=== PATIENT | female | born 1965 | race Caucasian/White ===

== ENCOUNTER 2017-03-13 18:02 | Emergency (ER) | payer OTHER ==
--- NOTE | 2017-03-13 19:19 | DIAGNOSTIC IMAGING REPORT ---
PROCEDURE: CT ABDOMEN/PELVIS W/O CONTRAST INDICATION: L FLANK PAIN TECHNIQUE: Noncontrast axial images were obtained of the entire abdomen and pelvis with sagittal and coronal reformations. COMPARISON: None. FINDINGS: ABDOMEN: There are no urinary calculi or hydronephrosis. Duplicated renal collecting systems bilaterally. Lung base are clear. Heart size is normal. Mild hepatic steatosis. Cholecystectomy. Pancreas, spleen and adrenal glands are normal. Mild atherosclerosis of the aorta. Nonspecific bowel gas pattern. PELVIS: Appendix not visualized but no evidence of acute appendicitis. Hysterectomy. Normal bladder. No pelvic mass, inflammatory changes or free fluid. Mild levoscoliosis and degenerative changes of the spine. IMPRESSION: 1. No evidence of urinary calculi 2. Hepatic steatosis 3. Cholecystectomy and hysterectomy 4. Results discussed with Dr. Henderson All CT scans at this facility use dose modulation, iterative reconstruction, and/or weight-based dosing when appropriate to reduce radiation dose to as low as reasonably achievable.
--- NOTE | 2017-03-13 20:06 | ED CLINICAL REPORT ---
Clinical Report - Physicians/Mid Levels [facility] [address] [place] [address] 03/13/2017 18:11 Patient: CANDELARIA VALENZUELA Time Seen: 1830. Arrived- By private vehicle. Historian- patient. HISTORY OF PRESENT ILLNESS Chief Complaint: ABDOMINAL PAIN. This started past month and is still present and worsening. It was abrupt in onset and has been intermittent but is not gone now. It is described as sharp and it is described as located in the left flank and radiating (left groin). At its maximum, severity described as severe. When seen in the E.D., severity described as severe. The patient has had nausea. No loss of appetite, vomiting or diarrhea. No recent travel. Similar symptoms previously: None. Recent medical care: The patient was seen recently in a clinic (told to go to the ED.). REVIEW OF SYSTEMS No constipation, black stools, hematemesis, bloody stools or fever. All systems otherwise negative, except as recorded above. PAST HISTORY See nurses notes. Medications: Omeprazole Oral. Flexall External. MetFORMIN HCl Oral. PROzac Oral. Prozac. Allergies: Amoxicillin. Hydrocodone. Iodine. SOCIAL HISTORY Former smoker. No alcohol use or drug use. No recent travel. Is a local resident. FAMILY HISTORY No family history of gall bladder problems. ADDITIONAL NOTES The nursing notes have been reviewed. PHYSICAL EXAM Vital Signs: 03/13/2017 18:17 BP: 145/79. HR: 105. RR: 18. O2 saturation: 99%. Temp: 99.1 F. Blood pressure normal. Oxygen saturation normal. Appearance: Alert. Oriented X3. No acute distress. (polite, cooperative, pleasant). Eyes: Pupils equal, round and reactive to light. Eyes normal inspection. CVS: Normal heart rate and rhythm. Heart sounds normal. Pulses normal. Respiratory: No respiratory distress. Breath sounds normal. Chest nontender. No rales, rhonchi or wheezes. Abdomen: Soft and nontender. Bowel sounds normal. Back: Moderate CVA tenderness on the left. (no midline tenderness. No crepitus. No abnormalities overlying skin.). Skin: Skin warm and dry. Normal skin color. No rash. Normal skin turgor. Extremities: Extremities exhibit normal ROM. No lower extremity edema. Neuro: Oriented X 3. No motor deficit. No sensory deficit. LABS, X-RAYS, AND EKG Laboratory Tests: UA-Culture if indicated: (ANABEL: 03/13/2017 18:10) ( [facility] 03/13/2017 19:33) Final results Test Result Flag Units (Reference) URINE COLOR YELLOW URINE APPEARANCE CLEAR URINE GLUCOSE NEGATIVE (NEGATIVE) URINE BILIRUBIN NEGATIVE (NEGATIVE) URINE KETONE NEGATIVE (NEGATIVE) URINE SPECIFIC GRAVITY 1.025 (1.010-1.030) URINE PH 6.0 (5.0-8.0) URINE PROTEIN NEGATIVE (NEGATIVE) URINE UROBILINOGEN 0.2 EU/dL (0.2-1.0) URINE NITRITE POSITIVE (NEGATIVE) URINE BLOOD NEGATIVE (NEGATIVE) URINE LEUK ESTERASE TRACE (NEGATIVE) URINE RBC NONE SEEN rbc/hpf (0-1) URINE WBC 3-5 wbc/hpf (0-1) URINE EPITHELIAL CELLS 5-10 EPI/hpf (0-5) URINE BACTERIA MANY (4+) (NONE SEEN) URINE COMMENT CULTURE INDICATED URINE CULTURES ARE SET-UP BASED ON THE FOLLOWING CRITERIA:POSITIVE NITRITEPOSITIVE LEUKOCYTE ESTERASEGREATER THAN 10 WHITE BLOOD CELLSMODERATE (2+) OR GREATER BACTERIA CBC w Diff: (ANABEL: 03/13/2017 18:50) ( [facility] 03/13/2017 19:06) Final results Test Result Flag Units (Reference) WHITE BLOOD COUNT 9.4 K/uL (4.5-11.5) RED BLOOD COUNT 4.88 M/uL (4.00-5.20) HEMOGLOBIN 14.4 gm/dL (12.0-16.0) HEMATOCRIT 42.8 % (36.0-46.0) MEAN CELL VOLUME 88 fL (80-100) MEAN CORPUSCULAR HGB 29 pg (26-34) MEAN CORPUSCULAR HGB CONC 34 g/dL (31-37) RED CELL DISTRIBUTION WIDTH 12.6 % (11.6-14.8) PLATELET COUNT 300 K/uL (150-400) NEUTROPHIL % 58.5 % (50-75) LYMPH % 33.8 % (25-40) MONO % 3.5 % (3-14) EOSINOPHIL % 3.7 % (0-4) BASOPHIL % 0.5 % (0-2) CMP: (ANABEL: 03/13/2017 18:50) ( [facility] 03/13/[place] 19:34) Final results Test Result Flag Units (Reference) GLUCOSE 104 mg/dL (70-110) BUN 24 H mg/dL (7-18) CREATININE 0.8 mg/dL (0.6-1.3) Estimated GFR >60 mL/min Estimated GFR- >60 mL/min Note: Persistent reduction over 3 months in eGFR<60 mL/min/1.73 m2 defines CKD. Patients with eGFR values>=60 mL/min/1.73 m2 may also have CKD if evidence ofpersistent proteinuria. Additional information may be foundat www.[email or web address].org. SODIUM 138 mmol/L (136-145) POTASSIUM 3.6 mmol/L (3.5-5.1) CHLORIDE 102 mmol/L (98-107) CARBON DIOXIDE 26 mmol/L (21-32) CALCIUM 8.5 mg/dL (8.5-10.1) TOTAL PROTEIN 7.0 g/dL (6.4-8.2) ALBUMIN 3.6 g/dL (3.3-5.0) BILIRUBIN, TOTAL 0.4 mg/dL (0.0-1.0) ALKALINE PHOSPHATASE 39 L U/L (46-116) AST (SGOT) 20 U/L (15-37) ALT (SGPT) 33 U/L (12-78) LIPASE 117 U/L (73-393) Culture, Urine: (ANABEL: 03/13/2017 18:10) ( [facility] 03/15/2017 11:30) Final results Test Result Flag Units (Reference) CULTURE, URINE DATE: 03/15/17 PRELIM REPORT: FINAL REPORT -- ESCCOL QUANTITATIVE URINE GROWTH: GREATER THAN 100,000 CFU/mL AMOXICILLIN/CLAVULANATE AMPICILLIN R AMPICILLIN/SULBACTAM R CEFAZOLIN S CEFTRIAXONE S CEFEPIME S CEFUROXIME CIPROFLOXACIN R ERTAPENEM S GENTAMICIN S IMIPENEM S LEVOFLOXACIN R MEROPENEM S NITROFURANTOIN S TETRACYCLINE PIP/TAZO S TRIMETHOPRIM/SULFAMETHOXAZOLE R . PROGRESS AND PROCEDURES Course of Care: the patient is a 52-year-old female presenting for a vaginal left-sided flank pain. Patient was seen at urgent care clinic and referred to our emergency department. At this time differential diagnosis includes renal colic versus pyelonephritis. Patient will be evaluated with a CT scan of the abdomen and pelvis without contrast as well as urinalysis and laboratory studies. Patient is agreeable to the workup and plan. Pain medication and nausea medication as been offered. The patient's workup was remarkable for the findings above. Urinalysis is significantly positive. 4+ bacteria noted on patient's urinalysis. The patient's other laboratory studies and CT scan are noted for the findings above. Patient has a nonsurgical abdomen. CT scan does not show any signs of surgical emergency at this time. Because of the patient's workup here in the emergency department, patient be treated conservatively with antibiotics and follow-up. Do not fill patient is admitted to the hospital require further emergency department workup/evaluation. On repeat examination, patient is significantly more comfortable. Patient states that she feels that her pain is well-controlled and can return home. Had a discussion with the patient in regards to workup here in emergency department including her diagnosis, home care, follow-up, and return precautions. All questions have been answered. The patient expressed understanding of these instructions and was agreeable to them. Disposition: Discharged. Condition: good. CLINICAL IMPRESSION 03/13/2017 19:35 BP: 136/75. HR: 96. RR: 15. O2 saturation: 96%. Temp: 98.6 F. Pain level now: 8/10. Blood pressure normal. Oxygen saturation normal. Acute pyelonephritis INSTRUCTIONS Warnings: SEDATIVE MEDICATION: You were given sedative medication during your visit. Do not drive or operate dangerous machinery. CONTROLLED SUBSTANCE WARNINGS. GENERAL WARNINGS: Return or contact your physician immediately if your condition worsens or changes unexpectedly, if not improving as expected, or if other problems arise. SPECIFICALLY, return if you develop pain, fever, vomiting, the inability to keep fluids down, blood in vomitus, blood in diarrhea, fainting or lightheadedness. Your Current Medications: CONTINUE TAKING THE FOLLOWING MEDICATIONS: Flexall External. MetFORMIN HCl Oral. Omeprazole Oral. Prozac*. PROzac Oral. Prescription Medications: Cephalexin 500 mg: take 1 capsule orally every 8 hours for 10 days. No refill. (disp 30 caps) Motrin 600 mg tablets: take 1 tablet orally every 6 hours as needed for pain, stiffness, swelling or fever. Dispense thirty (30). No refill. Substitution is permissible. Percocet 5 mg/325 mg: take 1 tablet orally every 6 hours as needed for pain. Dispense ten (10). No refill. Substitution is permissible. Follow-up: Return to the emergency department as needed. Follow up with your doctor in three days. Reason for referral: recheck today's concerns. Summary of care provided to patient via paper. Screening today revealed the patient's blood pressure to be in the normal range. The patient should follow up with a primary care provider for blood pressure management. Understanding of the discharge instructions verbalized by patient. (Electronically signed by Karlos Henderson Dr. 03/17/2017 2:09)
--- NOTE | 2017-03-13 20:06 | ED ORDER SUMMARY ---
..... Patient: CANDELARIA VALENZUELA OrderSheet [facility] VisitID: [id number] [place] [address] 52y, F Registration Date/Time: 03/13/2017 ORDER SHEET Weight: 98.4 kg (stated) Allergies: Iodine, Hydrocodone, Amoxicillin GENERAL ORDERS: CBC w Diff Urgent (18:41 03/13/2017 Newton Pineda) (Ack 18:45 PWeiler ER Tech1) (19:02 EHassan R.N.) CMP Urgent (18:41 03/13/2017 Newton Pineda) (Ack 18:45 PWeiler ER Tech1) (19:02 EHassan R.N.) UA-Culture if indicated Urgent (18:41 03/13/2017 Newton Pineda) (Ack 18:45 PWeiler ER Tech1) (19:02 EHassan R.N.) Lipase Urgent (18:41 03/13/2017 Newton Pineda) (Ack 18:45 PWeiler ER Tech1) (19:02 EHassan R.N.) Pulse oximeter (18:41 03/13/2017 Newton Pineda) (19:02 EHassan R.N.) CT Abd/Pel wo Cont Urgent (18:43 03/13/2017 Newton Pineda) (Ack 18:45 PWeiler ER Tech1) (19:09 LWhalen R.N.) MEDICATION ORDERS: Phenergan IV 25 mg (HIGH ALERT MEDICATION, NOW) (19:30 03/13/2017 Newton Pineda) (19:33 EHassapritesh R.N.) IV FLUIDS: IV NS : initial bolus 1000 mL (1000 mL/hr), then none - for X1 (NOW) (18:41 03/13/2017 Newton Pineda) (Ack 19:04 JBallyn R.N.) (19:09 LWhalen R.N.) Morphine IV 4 mg (HIGH ALERT MEDICATION, NOW) (18:41 03/13/2017 Newton Pineda) (Ack 19:04 Florian R.N.) (19:09 LWhalen R.N.) Zofran IV 4 mg (NOW) (18:41 03/13/2017 Newton Pineda) (Ack 19:04 Florian David) (19:09 Yakov David) Ceftriaxone IV 1 gm/50mL (NOW) (19:23 03/13/2017 Newton Pineda) (19:32 Rei David) had keflex without reaction Toradol IV 30 mg (NOW) (19:23 03/13/2017 Newton Pineda) (19:28 Rei David) had keflex without reaction ORDER SHEET NOTES: [Electronically signed by Diego Parker R.N. (22:48 03/13/2017)] [Electronically signed by Karlos Henderson Dr. (02:09 03/17/2017)] [Electronically locked/signed by Diego Parker R.N. (22:48 03/13/2017)]
--- NOTE | 2017-03-13 20:06 | ED ORDER SUMMARY ---
..... Patient: CANDELARIA VALENZUELA OrderSheet [facility] VisitID: [id number] [place] [address] 52y, F Registration Date/Time: 03/13/2017 ORDER SHEET Weight: 98.4 kg (stated) Allergies: Iodine, Hydrocodone, Amoxicillin GENERAL ORDERS: CBC w Diff Urgent (18:41 03/13/2017 Newton Pineda) (Ack 18:45 PWeiler ER Tech1) (19:02 EHassan R.N.) CMP Urgent (18:41 03/13/2017 Newton Pineda) (Ack 18:45 PWeiler ER Tech1) (19:02 EHassan R.N.) UA-Culture if indicated Urgent (18:41 03/13/2017 Newton Pineda) (Ack 18:45 PWeiler ER Tech1) (19:02 EHassan R.N.) Lipase Urgent (18:41 03/13/2017 Newton Pineda) (Ack 18:45 PWeiler ER Tech1) (19:02 EHassan R.N.) Pulse oximeter (18:41 03/13/2017 Newton Pineda) (19:02 EHassan R.N.) CT Abd/Pel wo Cont Urgent (18:43 03/13/2017 eNwton Pineda) (Ack 18:45 PWeiler ER Tech1) (19:09 LWhalen R.N.) MEDICATION ORDERS: Phenergan IV 25 mg (HIGH ALERT MEDICATION, NOW) (19:30 03/13/2017 Newton Pineda) (19:33 EHassapritesh R.N.) IV FLUIDS: IV NS : initial bolus 1000 mL (1000 mL/hr), then none - for X1 (NOW) (18:41 03/13/2017 Newton Pineda) (Ack 19:04 JBallyn R.N.) (19:09 LWhalen R.N.) Morphine IV 4 mg (HIGH ALERT MEDICATION, NOW) (18:41 03/13/2017 Newton Pineda) (Ack 19:04 Florian R.N.) (19:09 LWhalen R.N.) Zofran IV 4 mg (NOW) (18:41 03/13/2017 Newton Pineda) (Ack 19:04 Florian David) (19:09 Yakov David) Ceftriaxone IV 1 gm/50mL (NOW) (19:23 03/13/2017 Newton Pineda) (19:32 Rei David) had keflex without reaction Toradol IV 30 mg (NOW) (19:23 03/13/2017 Newton Pineda) (19:28 Rei David) had keflex without reaction ORDER SHEET NOTES: [Electronically signed by Diego aPrker R.N. (22:48 03/13/2017)] [Electronically signed by Karlos Henderson Dr. (02:09 03/17/2017)] [Electronically locked/signed by Diego Parker R.N. (22:48 03/13/2017)]
--- NOTE | 2017-03-13 20:06 | ED NURSING NOTES ---
Clinical Report - Nurses [facility] [address] [place] [address] 03/13/2017 18:11 [id number] Triage time 18:17 Mar 13 2017. Acuity: LEVEL 3. Chief Complaint: ABDOMINAL PAIN. SARAH COMA SCORE: Sarah Coma Scale: 15- eyes open spontaneously (4); best verbal response- oriented x 4 (5); best motor response- obeys commands (6). --18:27 Mariposa Gallagher R.N. 18:17 03/13/17. BP: 145/79. HR: 105. RR: 18. O2 saturation: 99%. Temp: 99.1 F. Pain level now 7/10. --18:27 Mariposa Gallagher R.N. Weight: 98.4 kg stated. Height/Length: 68 inches Per Patient. BMI: 33. --18:26 Mariposa Gallagher R.N. Medications Prozac. --18:19 Mariposa Gallagher R.N. MetFORMIN HCl Oral. PROzac Oral. --18:19 Mariposa Gallagher R.N. Flexall External. --18:19 Mariposa Gallagher R.N. Omeprazole Oral. --18:19 Mariposa Gallagher R.N. Allergies Iodine. --18:20 Mariposa Gallagher R.N. Hydrocodone. --18:20 Mariposa Gallagher R.N. Amoxicillin. --18:20 Mariposa Gallagher R.N. History Arrived by private vehicle. Historian: patient. ( Left sided back and abdominal pain that radiates into groin in that area. + more frequent and urgent urine.). She has had nausea. No vomiting, diarrhea, constipation, abdominal pain or fever. No subjective low grade fever. Not this morning. PAST MEDICAL HX: Diabetes mellitus. Gastroesophageal reflux disease. Gallstones. No history of peptic ulcer disease. Immunizations: up-to-date. Has not had a hysterectomy. SOCIAL HX: Former smoker, end date 1998. No alcohol use or drug use. No recent travel. No known contact with a sick individual. SELF HARM ASSESSMENT: A self harm assessment was performed. The patient answered "no" to the question "Do you have thoughts of harming or killing yourself?". FALL RISK ASSESSMENT: Fall risk assessment completed. No fall risk identified. NUTRITIONAL RISK ASSESSMENT: The nutritional risk assessment revealed no deficiencies. FUNCTIONAL ASSESSMENT: Functional assessment: no impairments noted. LEARNING NEEDS ASSESSMENT: The learning needs assessment revealed no barriers. SKIN INTEGRITY ASSESSMENT: Skin integrity risk assessment completed. No skin integrity risk identified. --18:27 Mariposa Gallagher R.N. PROBLEMS: Diabetes Mellitus. Elevated Cholesterol. Neck Injury. Gallstone(s). Bladder problems . Gerd. --18:23 Mariposa Gallagher R.N. ADDITIONAL SURGERIES: Appendectomy. Bladder Suspension. Cholecystectomy. Hysterectomy. --18:23 Mariposa Gallagher R.N. Interventions ID band on patient. --18:27 Mariposa Galalgher R.N. PHYSICAL ASSESSMENT GENERAL / NEURO / PSYCH: Acute distress is noted. --18:28 Mariposa Gallagher R.N. GENERAL / NEURO / PSYCH: Alert. Oriented X 4. Appears in no acute distress. Appears anxious. HEENT: Mucous membranes are pink. RESPIRATORY: Respirations not labored. Breath sounds within normal limits. CVS: Normal sinus rhythm noted. Capillary refill less than 2 seconds. GI / : The patient has had nausea. Abdomen soft. Abdominal tenderness. Bowel sounds within normal limits. Normal genitalia. ( Normal BM yesterday). SKIN: Skin is warm and dry. --18:30 Diego Parker R.N. NURSING PROGRESS NOTES The initial plan of care for this patient includes an assessment with efforts to address patient positioning, appropriate ambient lighting and comfortable environmental temperature; impairment of the gastrointestinal and musculoskeletal system. Pulse oximeter and NIBP monitor placed on patient. Patient gowned. Head of bed elevated 75 degrees. Reassurance given. Call light placed in reach. Side rails up x 1. Bed placed in lowest position. Brakes of bed on. --18:30 Diego Parker R.N. 18:55 03/13/2017 Site #1 started via IV in the left wrist with an 22g angiocath, with aseptic technique and good blood return; two attempts. Blood drawn: rainbow set. Labeled in the presence of the patient and sent to the lab. Saline lock flushed with 10 mL saline. --19:05 Srinath Gomez R.N. 19:03/13/2017 Started bag #1 1000 mL IV Fluids IV NS (Saline); at 1000 mL/hr over 1 hour(s) via site #1 via IV pump. Allergies verified and confirmed 5 rights. IV patency established. IV site checked: no pain, redness, or swelling. IV flushed thoroughly pre- and post-medication administration. --19: Diego Parker R.N. 19:03/13/2017 Zofran (Ondansetron HCl) IVP 4 mg given over 2 minute(s) via site #1. Allergies verified and confirmed 5 rights. IV patency established. IV site checked: no pain, redness, or swelling. IV flushed thoroughly pre- and post-medication administration. --19: Diego Parker R.N. 19:03/13/17. Patient transported to [place] by stretcher with tech. ([id number]). --19: Srinath Gomez R.N. 19:03/13/2017 Morphine IVP 4 mg given over 2 minute(s) via site #1. Allergies verified, confirmed 5 rights and sedative warning given to the patient. IV patency established. IV site checked: no pain, redness, or swelling. IV flushed thoroughly pre- and post-medication administration. --19: Diego Parker R.N. 19:03/13/2017 Toradol IVP 30 mg given over 30 second(s) via site #1. Allergies verified and confirmed 5 rights. IV patency established. IV site checked: no pain, redness, or swelling. IV flushed thoroughly pre- and post-medication administration. IVP given by RN. --19: Mariposa Gallagher R.N. :03/13/2017 Morphine IVP Response: no adverse reaction pain is worsening. Symptoms have gotten worse. The patient feels worse. --19: Mariposa Gallagher R.N. 19:03/13/2017 Zofran IVP Response: no adverse reaction pain is worsening. Symptoms are the same. The patient feels the same. --19:28 Mariposa Gallagher R.N. 19:32 03/13/2017 Started 1 gm of Ceftriaxone IVPB in bag #1 50 mL; at 150 mL/hr over 30 minute(s) via site #1 via IV pump. Allergies verified and confirmed 5 rights. IV patency established. IV site checked: no pain, redness, or swelling. IV flushed thoroughly pre- and post-medication administration. --19:32 Mariposa Gallagher R.N. 19:33 03/13/2017 PHENERGAN (Promethazine HCl) IVP 25 mg given over 30 second(s) via site #1. Allergies verified and confirmed 5 rights. IV patency established. IV site checked: no pain, redness, or swelling. IV flushed thoroughly pre- and post-medication administration. IVP given by RN. --19:33 Mariposa Gallagher R.N. Pulse oximeter and NIBP monitor placed on patient; monitor alarms on. Reassurance given. The patient is calm. Overall patient status is the same- she states feels the same. ( Toradol given as ordered and antibiotics infusing. Will monitor). GI / : The patient reports nausea. The patient reports abdominal pain. Denies diarrhea or vomiting. Two patient identifiers checked. Call light placed in reach. --19:37 Mariposa Gallagher R.N. 19:35 03/13/17. BP: 136/75 (regular adult cuff) taken on the left arm, via an automated monitor, while lying. HR: 96. RR: 15. O2 saturation: 96% on room air. Temp: 98.6 F (oral). Pain level now: 05/17. --19:37 Mariposa Gallagher R.N. 20:30 03/13/2017 IV Fluids IV NS Discontinued: bag #1 infused upon discharge. Total amount infused: 600 mL. IV patency established. IV site checked: no pain, redness, or swelling. IV flushed thoroughly. --22:48 Diego Parker R.N. DISPOSITION / DISCHARGE 20:03/13/2017 Site #1 removed upon discharge. Catheter intact. Pressure dressing applied. --20:09 Diego Parker R.N. Condition at departure: improved. No learning barriers present. Discharge instructions provided and reviewed with the patient. Reviewed warnings. Reviewed medication(s). Treatments reviewed. Reviewed referrals. Patient verbalized understanding. Written instructions provided in Monegasque. The patient was discharged home and accompanied by spouse. She left the Emergency Department ambulatory and via private vehicle. Spouse driving. --20:11 Diego Parker R.N. 19:35 03/13/17. BP: 136/75 (regular adult cuff) taken on the left arm, via an automated monitor, while lying. HR: 96. RR: 15. O2 saturation: 96% on room air. Temp: 98.6 F (oral). Pain level now: 05/17. --20:11 Diego Parker R.N. Locked/Released at 03/13/2017 22:48 by Diego Parker R.N.
--- NOTE | 2017-03-17 02:09 | ED DISCHARGE INSTRUCTIONS ---
Patient: CANDELARIA VALENZUELA General Instructions [facility] VisitID: [id number] [place] [address] 52y, F Registration Date/Time: 03/13/2017 03/13/2017 19:35 BP: 136/75. HR: 96. RR: 15. O2 saturation: 96%. Temp: 98.6 F. Pain level now: 8/10. Blood pressure normal. Oxygen saturation normal. Acute pyelonephritis INSTRUCTIONS Warnings: SEDATIVE MEDICATION: You were given sedative medication during your visit. Do not drive or operate dangerous machinery. CONTROLLED SUBSTANCE WARNINGS. GENERAL WARNINGS: Return or contact your physician immediately if your condition worsens or changes unexpectedly, if not improving as expected, or if other problems arise. SPECIFICALLY, return if you develop pain, fever, vomiting, the inability to keep fluids down, blood in vomitus, blood in diarrhea, fainting or lightheadedness. Your Current Medications: CONTINUE TAKING THE FOLLOWING MEDICATIONS: Flexall External. MetFORMIN HCl Oral. Omeprazole Oral. Prozac*. PROzac Oral. Prescription Medications: Cephalexin 500 mg: take 1 capsule orally every 8 hours for 10 days. No refill. (disp 30 caps) Motrin 600 mg tablets: take 1 tablet orally every 6 hours as needed for pain, stiffness, swelling or fever. Dispense thirty (30). No refill. Substitution is permissible. Percocet 5 mg/325 mg: take 1 tablet orally every 6 hours as needed for pain. Dispense ten (10). No refill. Substitution is permissible. Follow-up: Return to the emergency department as needed. Follow up with your doctor in three days. Reason for referral: recheck today's concerns. Summary of care provided to patient via paper. Screening today revealed the patient's blood pressure to be in the normal range. The patient should follow up with a primary care provider for blood pressure management. Understanding of the discharge instructions verbalized by patient. ADDITIONAL INFORMATION Kidney Infection [Adult, Female] An infection of the kidney is also called "pyelonephritis". It usually starts as a bladder infection ("cystitis") which spreads to the kidneys. Pyelonephritis is more serious than a bladder infection. It can cause severe illness if not treated properly. The usual symptoms include an aching pain in the back, side or lower abdomen. Other symptoms may include fever, chills, nausea, vomiting, an urge to urinate and a burning sensation when passing urine. Home Care: Stay home from work or school. Rest in bed until your fever breaks and you are feeling better. Drink lots of fluid (at least 6-8 glasses a day, unless you must restrict fluids for other medical reasons). This will force the medicine into your urinary system and flush the bacteria out of your body. Avoid sexual intercourse until you have finished all of your medicine and your symptoms have gone away. Avoid caffeine, alcohol and spicy foods which may irritate the kidney and bladder. You may use acetaminophen (Tylenol) or ibuprofen (Motrin, Advil) to control pain, unless another pain medicine was prescribed. [NOTE: If you have chronic liver or kidney disease or ever had a stomach ulcer or GI bleeding, talk with your doctor before using these medicines.] Follow Up with your doctor or as advised by our staff for a repeat urine test in 10 days. This will ensure that your infection is fully cleared. [NOTE: If you had an X-ray or CT scan, it will be reviewed by a specialist. You will be notified of any new findings that may affect your care.] Get Prompt Medical Attention if any of the following occur: Fever over 100.4F (38.0C) after 48 hours of treatment No improvement by the third day of treatment Increasing back or abdominal pain Repeated vomiting or inability to take oral medicine Weakness, dizziness or fainting Flank Pain[Uncertain Cause] The flank is the area between the upper abdomen and the back. Pain here is often related to the kidneyan infection or a kidney stone. Other causes of flank pain include spinal arthritis, pinched nerve from a disk injury, back muscle strain or spasm. The cause of your flank pain is not certain and further tests may be needed. Home Care: You may use acetaminophen (Tylenol) or ibuprofen (Motrin, Advil) to control pain, unless another medicine was prescribed. [NOTE: If you have chronic liver or kidney disease or ever had a stomach ulcer or GI bleeding, talk with your doctor before using these medicines.] If the cause of your pain is coming from the muscles, ice or heat may give relief. During the first two days after injury, apply an ICE PACK to the painful area for 20 minutes every 2-4 hours. This will reduce swelling and pain. HEAT (hot shower, hot bath or heating pad) works well for muscle spasm. You can start with ice, then switch to heat after two days. Some patients feel best alternating ice and heat treatments. Use the one method that feels the best to you. Follow Up with your doctor or as advised by our staff for further evaluation if your symptoms are not improving over the next few days. Return Promptly or contact your doctor if any of the following occur: Repeated vomiting Fever of 100.4F (38C) or higher, or as directed by your healthcare provider Increasing flank pain Pain that spreads to the front of the abdomen Dizziness, weakness or fainting Blood in your urine Burning with urination or frequent urination Increasing pain in the leg Numbness or weakness in the leg Cephalexin Monohydrate Oral tablet What is this medicine? CEPHALEXIN (sef a MELIA in) is a cephalosporin antibiotic. It is used to treat certain kinds of bacterial infections It will not work for colds, flu, or other viral infections. How should I use this medicine? Take this medicine by mouth with a full glass of water. Follow the directions on the prescription label. This medicine can be taken with or without food. Take your medicine at regular intervals. Do not take your medicine more often than directed. Take all of your medicine as directed even if you think you are better. Do not skip doses or stop your medicine early. Talk to your pipe line walker regarding the use of this medicine in children. While this drug may be prescribed for selected conditions, precautions do apply. What side effects may I notice from receiving this medicine? Side effects that you should report to your doctor or health patient centered care specialist as soon as possible: allergic reactions like skin rash, itching or hives, swelling of the face, lips, or tongue breathing problems pain or trouble passing urine redness, blistering, peeling or loosening of the skin, including inside the mouth severe or watery diarrhea unusually weak or tired yellowing of the eyes, skin Side effects that usually do not require medical attention (report to your doctor or health patient centered care specialist if they continue or are bothersome): gas or heartburn genital or anal irritation headache joint or muscle pain nausea, vomiting What may interact with this medicine? probenecid some other antibiotics What if I miss a dose? If you miss a dose, take it as soon as you can. If it is almost time for your next dose, take only that dose. Do not take double or extra doses. There should be at least 4 to 6 hours between doses. Where should I keep my medicine? Keep out of the reach of children. Store at room temperature between 59 and 86 degrees F (15 and 30 degrees C). Throw away any unused medicine after the expiration date. What should I tell my health care provider before I take this medicine? They need to know if you have any of these conditions: kidney disease stomach or intestine problems, especially colitis an unusual or allergic reaction to cephalexin, other cephalosporins, penicillins, other antibiotics, medicines, foods, dyes or preservatives or trying to get breast-feeding What should I watch for while using this medicine? Tell your doctor or health patient centered care specialist if your symptoms do not begin to improve in a few days. Do not treat diarrhea with over the counter products. Contact your doctor if you have diarrhea that lasts more than 2 days or if it is severe and watery. If you have diabetes, you may get a false-positive result for sugar in your urine. Check with your doctor or health patient centered care specialist. Ibuprofen Oral tablet What is this medicine? IBUPROFEN (eye BYOO proe fen) is a non-steroidal anti-inflammatory drug (NSAID). It is used for dental pain, fever, headaches or migraines, osteoarthritis, rheumatoid arthritis, or painful monthly periods. It can also relieve minor aches and pains caused by a cold, flu, or sore throat. How should I use this medicine? Take this medicine by mouth with a glass of water. Follow the directions on the prescription label. Take this medicine with food if your stomach gets upset. Try to not lie down for at least 10 minutes after you take the medicine. Take your medicine at regular intervals. Do not take your medicine more often than directed. A special MedGuide will be given to you by the pharmacist with each prescription and refill. Be sure to read this information carefully each time. Talk to your pipe line walker regarding the use of this medicine in children. Special care may be needed. What side effects may I notice from receiving this medicine? Side effects that you should report to your doctor or health patient centered care specialist as soon as possible: allergic reactions like skin rash, itching or hives, swelling of the face, lips, or tongue black or bloody stools, blood in the urine or in vomit breathing problems changes in vision chest pain general ill feeling or flu-like symptoms nausea or vomiting redness, blistering, peeling or loosening of the skin, including inside the mouth slurred speech or weakness on one side of the body stomach pain unexplained weight gain or swelling unusually weak or tired yellowing of eyes or skin Side effects that usually do not require medical attention (report to your doctor or health patient centered care specialist if they continue or are bothersome): constipation or diarrhea dizziness gas or heartburn stomach upset What may interact with this medicine? Do not take this medicine with any of the following medications: cidofovir ketorolac methotrexate pemetrexed This medicine may also interact with the following medications: alcohol aspirin diuretics lithium other drugs for inflammation like prednisone warfarin What if I miss a dose? If you miss a dose, take it as soon as you can. If it is almost time for your next dose, take only that dose. Do not take double or extra doses. Where should I keep my medicine? Keep out of the reach of children. Store at room temperature between 15 and 30 degrees C (59 and 86 degrees F). Keep container tightly closed. Throw away any unused medicine after the expiration date. What should I tell my health care provider before I take this medicine? They need to know if you have any of these conditions: asthma cigarette smoker drink more than 3 alcohol containing drinks a day heart disease or circulation problems such as heart failure or leg edema (fluid retention) high blood pressure kidney disease liver disease stomach bleeding or ulcers an unusual or allergic reaction to ibuprofen, aspirin, other NSAIDS, other medicines, foods, dyes, or preservatives or trying to get breast-feeding What should I watch for while using this medicine? Tell your doctor or healthcare professional if your symptoms do not start to get better or if they get worse. This medicine does not prevent heart attack or stroke. In fact, this medicine may increase the chance of a heart attack or stroke. The chance may increase with longer use of this medicine and in people who have heart disease. If you take aspirin to prevent heart attack or stroke, talk with your doctor or health patient centered care specialist. Do not take other medicines that contain aspirin, ibuprofen, or naproxen with this medicine. Side effects such as stomach upset, nausea, or ulcers may be more likely to occur. Many medicines available without a prescription should not be taken with this medicine. This medicine can cause ulcers and bleeding in the stomach and intestines at any time during treatment. Ulcers and bleeding can happen without warning symptoms and can cause . To reduce your risk, do not smoke cigarettes or drink alcohol while you are taking this medicine. You may get drowsy or dizzy. Do not drive, use machinery, or do anything that needs mental alertness until you know how this medicine affects you. Do not stand or sit up quickly, especially if you are an older patient. This reduces the risk of dizzy or fainting spells. This medicine can cause you to bleed more easily. Try to avoid damage to your teeth and gums when you brush or floss your teeth. Oxycodone Hydrochloride, Acetaminophen Oral tablet What is this medicine? ACETAMINOPHEN; OXYCODONE (a set a ESSENCE shana fen; ox i KOE done) is a pain reliever. It is used to treat mild to moderate pain. How should I use this medicine? Take this medicine by mouth with a full glass of water. Follow the directions on the prescription label. Take your medicine at regular intervals. Do not take your medicine more often than directed. Talk to your pipe line walker regarding the use of this medicine in children. Special care may be needed. Patients over 65 years old may have a stronger reaction and need a smaller dose. What side effects may I notice from receiving this medicine? Side effects that you should report to your doctor or health patient centered care specialist as soon as possible: allergic reactions like skin rash, itching or hives, swelling of the face, lips, or tongue breathing difficulties, wheezing confusion light headedness or fainting spells severe stomach pain yellowing of the skin or the whites of the eyes Side effects that usually do not require medical attention (report to your doctor or health patient centered care specialist if they continue or are bothersome): dizziness drowsiness nausea vomiting What may interact with this medicine? alcohol antihistamines barbiturates like amobarbital, butalbital, butabarbital, methohexital, pentobarbital, phenobarbital, thiopental, and secobarbital benztropine drugs for bladder problems like solifenacin, trospium, oxybutynin, tolterodine, hyoscyamine, and methscopolamine drugs for breathing problems like ipratropium and tiotropium drugs for certain stomach or intestine problems like propantheline, homatropine methylbromide, glycopyrrolate, atropine, belladonna, and dicyclomine general anesthetics like etomidate, ketamine, nitrous oxide, propofol, desflurane, enflurane, halothane, isoflurane, and sevoflurane medicines for depression, anxiety, or psychotic disturbances medicines for sleep muscle relaxants naltrexone narcotic medicines (opiates) for pain phenothiazines like perphenazine, thioridazine, chlorpromazine, mesoridazine, fluphenazine, prochlorperazine, promazine, and trifluoperazine scopolamine tramadol trihexyphenidyl What if I miss a dose? If you miss a dose, take it as soon as you can. If it is almost time for your next dose, take only that dose. Do not take double or extra doses. Where should I keep my medicine? Keep out of the reach of children. This medicine can be abused. Keep your medicine in a safe place to protect it from theft. Do not share this medicine with anyone. Selling or giving away this medicine is dangerous and against the law. Store at room temperature between 20 and 25 degrees C (68 and 77 degrees F). Keep container tightly closed. Protect from light. This medicine may cause accidental overdose and if it is taken by other adults, children, or pets. Flush any unused medicine down the toilet to reduce the chance of harm. Do not use the medicine after the expiration date. What should I tell my health care provider before I take this medicine? They need to know if you have any of these conditions: brain tumor Crohn's disease, inflammatory bowel disease, or ulcerative colitis drink more than 3 alcohol containing drinks per day drug abuse or addiction head injury heart or circulation problems kidney disease or problems going to the bathroom liver disease lung disease, asthma, or breathing problems an unusual or allergic reaction to acetaminophen, oxycodone, other opioid analgesics, other medicines, foods, dyes, or preservatives or trying to get breast-feeding What should I watch for while using this medicine? Tell your doctor or health patient centered care specialist if your pain does not go away, if it gets worse, or if you have new or a different type of pain. You may develop tolerance to the medicine. Tolerance means that you will need a higher dose of the medication for pain relief. Tolerance is normal and is expected if you take this medicine for a long time. Do not suddenly stop taking your medicine because you may develop a severe reaction. Your body becomes used to the medicine. This does NOT mean you are addicted. Addiction is a behavior related to getting and using a drug for a non-medical reason. If you have pain, you have a medical reason to take pain medicine. Your doctor will tell you how much medicine to take. If your doctor wants you to stop the medicine, the dose will be slowly lowered over time to avoid any side effects. You may get drowsy or dizzy. Do not drive, use machinery, or do anything that needs mental alertness until you know how this medicine affects you. Do not stand or sit up quickly, especially if you are an older patient. This reduces the risk of dizzy or fainting spells. Alcohol may interfere with the effect of this medicine. Avoid alcoholic drinks. There are different types of narcotic medicines (opiates) for pain. If you take more than one type at the same time, you may have more side effects. Give your health care provider a list of all medicines you use. Your doctor will tell you how much medicine to take. Do not take more medicine than directed. Call emergency for help if you have problems breathing. The medicine will cause constipation. Try to have a bowel movement at least every 2 to 3 days. If you do not have a bowel movement for 3 days, call your doctor or health patient centered care specialist. Do not take Tylenol (acetaminophen) or medicines that have acetaminophen with this medicine. Too much acetaminophen can be very dangerous. Many nonprescription medicines contain acetaminophen. Always read the labels carefully to avoid taking more acetaminophen. You have been given the following additional information: Pyelonephritis, Female (Adult) Flank Pain, Uncertain Cause Cephalexin Monohydrate Oral tablet Ibuprofen Oral tablet Oxycodone Hydrochloride, Acetaminophen Oral tablet (Electronically signed by Karlos Henderson Dr. 03/17/2017 2:09)
--- NOTE | 2017-03-17 02:09 | ED MED RECONCILIATION SUMMARY ---
Patient: CANDELARIA VALENZUELA Medication Reconciliation Report [facility] VisitID: [id number] [place] [address] 52y, F Registration Date/Time: 03/13/2017 Weight: 98.4 kg Height/Length: 68 in. BMI: 33.0 ALLERGIES: Amoxicillin, Hydrocodone, Iodine The patient's Home Medications are listed below: CONTINUE TAKING THE FOLLOWING MEDICATIONS: Flexall External MetFORMIN HCl Oral Omeprazole Oral Prozac PROzac Oral The source(s) of the original Home Medication information: Not obtained. The following Medications were given to the patient in the Emergency Department: IV NS IV Fluids bolus 0, then 1000 mL/hr, administered: 03/13/2017 7:04:00 PM Zofran [IVP] IVP 4 mg, administered: 03/13/2017 7:04:00 PM Morphine [IVP] IVP 4 mg, administered: 03/13/2017 7:09:00 PM Toradol [IVP] IVP 30 mg, administered: 03/13/2017 7:28:00 PM Ceftriaxone [IVPB] IVPB bolus 0, then 1 gm 150 mL/hr, administered: 03/13/2017 7:32:00 PM PHENERGAN [IVP] IVP 25 mg, administered: 03/13/2017 7:33:00 PM The following Medications were prescribed to the patient: Cephalexin 500 mg: take 1 capsule orally every 8 hours for 10 days. No refill.(disp 30 caps) -- Karlos Henderson Dr. Motrin 600 mg tablets: take 1 tablet orally every 6 hours as needed for pain, stiffness, swelling or fever. Dispense thirty (30). No refill. Substitution is permissible. -- Karlos Henderson Dr. Percocet 5 mg/325 mg: take 1 tablet orally every 6 hours as needed for pain. Dispense ten (10). No refill. Substitution is permissible. -- Karlos Henderson Dr.
--- NOTE | 2017-03-17 02:09 | ED MAR SUMMARY ---
..... Medication Administration Record [facility] [address] [place] [address] Patient: CANDELARIA VALENZUELA Visit ID: [id number] 52y, F Weight: 98.4 kg Height/Length: 68 in BMI: 33 ALLERGIES: Amoxicillin, Hydrocodone, Iodine Start 19:04 03/13/2017 Diego Parker R.N., Stop 20:30 03/13/2017 Diego Parker R.N. Medication Administered: IV NS (SALINE), Dose: IV Fluids over 1 hour(s), Rate: 1000 mL/hr, Dispensed: 1000 mL bag, Site: #1 left wrist. Medication Ordered: IV NS : initial bolus 1000 mL (1000 mL/hr), then none - for X1 (NOW). Given 19:04 03/13/2017 Diego Parker R.N. Medication Administered: ZOFRAN [IVP] (ONDANSETRON HCL), Dose: 4 mg IVP over 2 minute(s), Site: #1 left wrist. Medication Ordered: Zofran IV 4 mg (NOW). Given 19:09 03/13/2017 Diego Parker R.N. Medication Administered: MORPHINE [IVP], Dose: 4 mg IVP over 2 minute(s), Site: #1 left wrist. Medication Ordered: Morphine IV 4 mg (HIGH ALERT MEDICATION, NOW). Given 19:28 03/13/2017 Mariposa Gallagher R.N. Medication Administered: TORADOL [IVP], Dose: 30 mg IVP over 30 second(s), Site: #1 left wrist. Medication Ordered: Toradol IV 30 mg (NOW). Start 19:32 03/13/2017 Mariposa Gallagher R.N. Medication Administered: CEFTRIAXONE [IVPB], Dose: 1 gm IVPB over 30 minute(s), Rate: 150 mL/hr, Dispensed: 50 mL bag, Site: #1 left wrist. Medication Ordered: Ceftriaxone IV 1 gm/50mL (NOW). Given 19:33 03/13/2017 Mariposa Gallgaher R.N. Medication Administered: PHENERGAN [IVP] (PROMETHAZINE HCL), Dose: 25 mg IVP over 30 second(s), Site: #1 left wrist. Medication Ordered: Phenergan IV 25 mg (HIGH ALERT MEDICATION, NOW).
--- NOTE | 2017-03-17 02:09 | ED MAR SUMMARY ---
..... Medication Administration Record [facility] [address] [place] [place] [address] Patient: CANDELARIA VALENZUELA Visit ID: [id number] 52y, F Weight: 98.4 kg Height/Length: 68 in BMI: 33 ALLERGIES: Amoxicillin, Hydrocodone, Iodine Start 19:04 03/13/2017 Diego Parker R.N., Stop 20:30 03/13/2017 Diego Parker R.N. Medication Administered: IV NS (SALINE), Dose: IV Fluids over 1 hour(s), Rate: 1000 mL/hr, Dispensed: 1000 mL bag, Site: #1 left wrist. Medication Ordered: IV NS : initial bolus 1000 mL (1000 mL/hr), then none - for X1 (NOW). Given 19:04 03/13/2017 Diego Parker R.N. Medication Administered: ZOFRAN [IVP] (ONDANSETRON HCL), Dose: 4 mg IVP over 2 minute(s), Site: #1 left wrist. Medication Ordered: Zofran IV 4 mg (NOW). Given 19:09 03/13/2017 Diego Parker R.N. Medication Administered: MORPHINE [IVP], Dose: 4 mg IVP over 2 minute(s), Site: #1 left wrist. Medication Ordered: Morphine IV 4 mg (HIGH ALERT MEDICATION, NOW). Given 19:28 03/13/2017 Mariposa Gallagher R.N. Medication Administered: TORADOL [IVP], Dose: 30 mg IVP over 30 second(s), Site: #1 left wrist. Medication Ordered: Toradol IV 30 mg (NOW). Start 19:32 03/13/2017 Mariposa Gallagher R.N. Medication Administered: CEFTRIAXONE [IVPB], Dose: 1 gm IVPB over 30 minute(s), Rate: 150 mL/hr, Dispensed: 50 mL bag, Site: #1 left wrist. Medication Ordered: Ceftriaxone IV 1 gm/50mL (NOW). Given 19:33 03/13/2017 Mariposa Gallagher R.N. Medication Administered: PHENERGAN [IVP] (PROMETHAZINE HCL), Dose: 25 mg IVP over 30 second(s), Site: #1 left wrist. Medication Ordered: Phenergan IV 25 mg (HIGH ALERT MEDICATION, NOW).
--- NOTE | 2017-03-17 02:09 | ED MED RECONCILIATION SUMMARY ---
Patient: CANDELARIA VALENZUELA Medication Reconciliation Report [facility] VisitID: [id number] [place] [address] 52y, F Registration Date/Time: 03/13/2017 Weight: 98.4 kg Height/Length: 68 in. BMI: 33.0 ALLERGIES: Amoxicillin, Hydrocodone, Iodine The patient's Home Medications are listed below: CONTINUE TAKING THE FOLLOWING MEDICATIONS: Flexall External MetFORMIN HCl Oral Omeprazole Oral Prozac PROzac Oral The source(s) of the original Home Medication information: Not obtained. The following Medications were given to the patient in the Emergency Department: IV NS IV Fluids bolus 0, then 1000 mL/hr, administered: 03/13/2017 7:04:00 PM Zofran [IVP] IVP 4 mg, administered: 03/13/2017 7:04:00 PM Morphine [IVP] IVP 4 mg, administered: 03/13/2017 7:09:00 PM Toradol [IVP] IVP 30 mg, administered: 03/13/2017 7:28:00 PM Ceftriaxone [IVPB] IVPB bolus 0, then 1 gm 150 mL/hr, administered: 03/13/2017 7:32:00 PM PHENERGAN [IVP] IVP 25 mg, administered: 03/13/2017 7:33:00 PM The following Medications were prescribed to the patient: Cephalexin 500 mg: take 1 capsule orally every 8 hours for 10 days. No refill.(disp 30 caps) -- Karlos [address] Dr. Motrin 600 mg tablets: take 1 tablet orally every 6 hours as needed for pain, stiffness, swelling or fever. Dispense thirty (30). No refill. Substitution is permissible. -- Karlos Henderson Dr. Percocet 5 mg/325 mg: take 1 tablet orally every 6 hours as needed for pain. Dispense ten (10). No refill. Substitution is permissible. -- Karlos [address] Dr.
== END 2017-03-13 20:15 | disposition home or self-care (01) ==
LOC: ED SRH 18:02
DX: N10 Acute pyelonephritis (principal); E11.9 Type 2 diabetes mellitus without complications; Z79.84 Long term (current) use of oral hypoglycemic drugs; K21.9 Gastro-esophageal reflux disease without esophagitis; Z79.899 Other long term (current) drug therapy; Z87.891 Personal history of nicotine dependence; Z88.0 Allergy status to penicillin; Z88.5 Allergy status to narcotic agent; Z91.09 Other allergy status, other than to drugs and biological substances
CPT/HCPCS: 90004; 90100; 90148; 90469; 92235; 95059